=== PATIENT | male | born 1985 | race American Indian/Alaskan Native ===

== ENCOUNTER 2019-04-18 03:29 | Emergency (ER) | payer BC ==
[2019-04-18] MEDS ORDERED: AUGMENTIN 875 MG PO ONE (04:26)
[2019-04-18] MEDS ORDERED: DELTASONE PO ONE (04:26)
[2019-04-18] MEDS ORDERED: NORCO 7.5/325 PO ONE (04:26)
[2019-04-18] MEDS ORDERED: ZOFRAN ODT PO ONE (04:26)
--- NOTE | 2019-04-18 05:02 | Emergency Department Report ---
ED General Adult HPI - General Chief complaint: Dental/Oral Stated complaint: JAW SWELLING Source: patient Mode of arrival: Ambulatory Limitations: No Limitations - History of Present Illness Initial comments: Patient is a 34-year-old -[place] male with no past medical history except chronic dental abscesses who presents to the ED with worsening bilateral upper and lower jaw pain with swollen gums and dental caries for the last 1 week, worse in the last 2 days. Patient denies fever, chills, nausea, vomiting, dizziness, headache, chest pain, shortness of breath, abdominal pain, sore throat, cough, traumatic injury or nasal and sinus congestion. MD Complaint: dental pain, swollen gums -: Sudden, week(s) (1) Location: mouth Radiation: non-radiation Severity scale (0 -10): 6 Quality: aching, sharp, constant Consistency: constant Improves with: none Worsens with: none Associated Symptoms: denies other symptoms. denies: confusion, chest pain, cough, diaphoresis, fever/chills, headaches, loss of appetite, malaise, nausea/vomiting, rash, shortness of breath, syncope, weakness Treatments Prior to Arrival: none - Related Data Previous Rx's Medication Instructions Recorded Last Taken Type Clindamycin [Clindamycin CAP] 300 mg PO Q8HR #60 capsule 04/18/19 Unknown Rx Ketorolac [Toradol] 10 mg PO Q8H PRN #20 tablet 04/18/19 Unknown Rx predniSONE [Deltasone] 40 mg PO QDAY #10 tab 04/18/19 Unknown Rx traMADol [Ultram] 50 mg PO Q6HR PRN #12 tablet 04/18/19 Unknown Rx ED Review of Systems ROS: Stated complaint: JAW SWELLING Other details as noted in HPI Constitutional: denies: chills, fever Eyes: denies: eye pain, eye discharge, vision change ENT: dental pain, other (swollen gums and dental caries). denies: ear pain, throat pain Respiratory: denies: cough, shortness of breath, wheezing Cardiovascular: denies: chest pain, palpitations, dyspnea on exertion, edema, paroxysmal nocturnal dyspnea Endocrine: no symptoms reported Gastrointestinal: denies: abdominal pain, nausea, diarrhea Genitourinary: denies: urgency, dysuria Musculoskeletal: denies: back pain, joint swelling, arthralgia Skin: denies: rash, lesions Neurological: denies: headache, weakness, paresthesias Psychiatric: denies: anxiety, depression Hematological/Lymphatic: denies: easy bleeding, easy bruising ED Past Medical Hx - Past Medical History Previous Medical History?: No - Surgical History Past Surgical History?: No - Social History Smoking Status: Current Every Day Smoker Substance Use Type: Alcohol - Medications Home Medications: Home Medications Medication Instructions Recorded Confirmed Last Taken Type Clindamycin [Clindamycin CAP] 300 mg PO Q8HR #60 capsule 04/18/19 Unknown Rx Ketorolac [Toradol] 10 mg PO Q8H PRN #20 tablet 04/18/19 Unknown Rx predniSONE [Deltasone] 40 mg PO QDAY #10 tab 04/18/19 Unknown Rx traMADol [Ultram] 50 mg PO Q6HR PRN #12 tablet 04/18/19 Unknown Rx ED Physical Exam - General Limitations: No Limitations General appearance: alert, in no apparent distress - Head Head exam: Present: atraumatic, normocephalic, normal inspection - Eye Eye exam: Present: normal appearance, PERRL, EOMI Pupils: Present: normal accommodation - ENT ENT exam: Present: normal exam, normal orophraynx, mucous membranes moist, TM's normal bilaterally, normal external ear exam, other (Swollen and severely tender gums; diffuse dental caries; ) - Neck Neck exam: Present: normal inspection, full ROM. Absent: tenderness, meningismus, lymphadenopathy, thyromegaly - Respiratory Respiratory exam: Present: normal lung sounds bilaterally. Absent: respiratory distress, wheezes, rales, rhonchi, chest wall tenderness, accessory muscle use - Cardiovascular Cardiovascular Exam: Present: regular rate, normal rhythm, normal heart sounds. Absent: systolic murmur, diastolic murmur, rubs, gallop - GI/Abdominal GI/Abdominal exam: Present: soft, normal bowel sounds. Absent: tenderness, guarding, rebound, hyperactive bowel sounds, hypoactive bowel sounds, organomegaly - Rectal Rectal exam: Present: deferred - Extremities Exam Extremities exam: Present: normal inspection, full ROM, normal capillary refill. Absent: pedal edema, joint swelling - Back Exam Back exam: Present: normal inspection, full ROM. Absent: tenderness, CVA tenderness (R), CVA tenderness (L), muscle spasm, paraspinal tenderness, vertebral tenderness - Neurological Exam Neurological exam: Present: alert, oriented X3, CN II-XII intact, normal gait, reflexes normal - Psychiatric Psychiatric exam: Present: normal affect, normal mood - Skin Skin exam: Present: warm, dry, intact, normal color. Absent: rash ED Course Vital Signs 04/18/19 03:31 Temperature 97.9 F Pulse Rate 75 Respiratory 18 Rate Blood Pressure 143/80 O2 Sat by Pulse 99 Oximetry - Reevaluation(s) Reevaluation #1: 04/18/19 05:07 This is a 34-year-old male with a history of chronic dental abscesses and dental caries present with worsening dental pain and swollen gums for one week. In the ED, patient is alert and oriented 3 and is not in any distress with normal vital signs. Patient was treated for pain in the ED and was given oral antibiotics in the ED. Patient was discharged home on antibiotics and pain medications and advised to follow-up with his dentist or primary care physician in 7-10 days for reevaluation. Patient was at rest return to the ED immediately if symptoms get worse. ED Medical Decision Making - Medical Decision Making This is a 34-year-old male with a history of chronic dental abscesses and dental caries present with worsening dental pain and swollen gums for one week. In the ED, patient is alert and oriented 3 and is not in any distress with normal vital signs. Patient was treated for pain in the ED and was given oral antibiotics in the ED. Patient was discharged home on antibiotics and pain medications and advised to follow-up with his dentist or primary care physician in 7-10 days for reevaluation. Patient was at rest return to the ED immediately if symptoms get worse. - Differential Diagnosis dental abscess; gingivitis; dental caries; facial swelling Critical care attestation.: If time is entered above; I have spent that time in minutes in the direct care of this critically ill patient, excluding procedure time. ED Disposition Clinical Impression: Dental abscess, Dental caries, Chronic gingivitis Disposition: TO HOME OR SELFCARE Is pt being admited?: No Does the pt Need Aspirin: No Condition: Stable Instructions: Dental Abscess (ED), Gingivitis (ED), Dental Caries (ED) Additional Instructions: Take medications with food, drink plenty of fluids and follow-up with a dentist or primary care physician in 7-10 days for reevaluation. Return to the ED immediately if symptoms get worse. Prescriptions: Clindamycin [Clindamycin CAP] 300 mg PO Q8HR #60 capsule predniSONE [Deltasone] 40 mg PO QDAY #10 tab Ketorolac [Toradol] 10 mg PO Q8H PRN #20 tablet PRN Reason: Pain traMADol [Ultram] 50 mg PO Q6HR PRN #12 tablet PRN Reason: Pain Referrals: [facility] [Outside] - 3-5 Days Time of Disposition: 05:04 Print Language: OCCITAN
[2019-04-18 07:09] VITALS: BP 126/66
== END 2019-04-18 07:10 | disposition home or self-care (01) ==
LOC: ED 03:29
DX: K04.7 Periapical abscess without sinus (principal); K05.10 Chronic gingivitis, plaque induced; K02.9 Dental caries, unspecified; F17.200 Nicotine dependence, unspecified, uncomplicated; Z79.899 Other long term (current) drug therapy
CPT/HCPCS: 99282; J7512; Q0162